=== PATIENT | female | born 1960 | race Caucasian/White ===

== ENCOUNTER 2020-09-22 16:22 | Emergency (ER) | payer SELFPAY | END 2020-09-22 16:36 | disposition home or self-care (01) | LOC: JVIRT 16:22 | DX: Z11.52 Encounter for screening for COVID-19 (principal) | CPT/HCPCS: C9803; Q3014-GT; U0003; U0005 ==

== ENCOUNTER 2020-09-24 12:57 | Emergency (ER) | payer SELFPAY | END 2020-09-24 13:08 | disposition home or self-care (01) | LOC: JVIRT 12:57 | DX: Z11.52 Encounter for screening for COVID-19 (principal) | CPT/HCPCS: C9803; Q3014-GT; U0003; U0005 ==

== ENCOUNTER 2020-11-08 21:59 | Emergency (ER) | payer SELFPAY | END 2020-11-08 22:47 | disposition home or self-care (01) | LOC: JVIRT 21:59 | DX: Z20.822 Contact with and (suspected) exposure to COVID-19 (principal) | CPT/HCPCS: C9803; Q3014-GT; U0003; U0005 ==